=== PATIENT | male | born 1965 | race Caucasian/White ===

== ENCOUNTER 2018-11-24 16:20 | Emergency (ER) | payer OTHER ==
[~2018-11-24] VITALS: Ht 172.7 cm; Wt 85.7 kg
[2018-11-27] MEDS ORDERED: AKTOB5 ML (18:53)
== END 2018-11-24 18:19 | disposition home or self-care (01) ==
LOC: ER 16:20
DX: H10.89 Other conjunctivitis (principal)

== ENCOUNTER → 2021-02-11 | Outpatient (CLI) | payer OTHER ==
[~2021-02-11] MED LIST: AKTOB5 ML; APETIGEN-PLUS1 EACH PO; STRIBILD TABLE1 EACH PO
== END | disposition home or self-care (01) ==
LOC: SONOGRAMA 11:16
PROVIDERS: ATTEND Specialist/Technologist, Other Nephrology
DX: R10.84 Generalized abdominal pain (principal); R31.29 Other microscopic hematuria; K80.80 Other cholelithiasis without obstruction; N28.89 Other specified disorders of kidney and ureter

== ENCOUNTER 2022-05-07 13:38 | Outpatient (CLI) | payer OTHER | END 2022-05-07 13:41 | disposition home or self-care (01) | LOC: RAD 13:38 | PROVIDERS: ATTEND Family Medicine | DX: R06.02 Shortness of breath (principal) ==

== ENCOUNTER 2023-09-23 07:34 | Outpatient (CLI) | payer OTHER | END 2023-09-23 10:20 | disposition home or self-care (01) | LOC: MRI 07:34 | PROVIDERS: ATTEND Psychiatry & Neurology Clinical Neurophysiology | DX: G31.84 Mild cognitive impairment of uncertain or unknown etiology (principal) | CPT/HCPCS: 70553; Q9965; 70552 ==

== ENCOUNTER 2024-05-29 13:36 | Outpatient (CLI) | payer OTHER | END 2024-05-29 13:39 | disposition home or self-care (01) | LOC: RAD 13:36 | PROVIDERS: ATTEND Family Medicine | DX: R06.02 Shortness of breath (principal) ==

== ENCOUNTER 2024-06-07 14:40 | Outpatient (CLI) | payer OTHER | END 2024-06-07 14:42 | disposition home or self-care (01) | LOC: MRI 14:40 | PROVIDERS: ATTEND Psychiatry & Neurology Clinical Neurophysiology | DX: B20 Human immunodeficiency virus [HIV] disease (principal); A81.2 Progressive multifocal leukoencephalopathy; F71 Moderate intellectual disabilities | CPT/HCPCS: 70551 ==

== ENCOUNTER 2024-10-01 08:03 | Outpatient (CLI) | payer OTHER | END 2024-10-01 08:04 | disposition home or self-care (01) | LOC: NUCLEAR 08:03 | PROVIDERS: ATTEND Psychiatry & Neurology Clinical Neurophysiology | DX: G93.40 Encephalopathy, unspecified (principal) | CPT/HCPCS: 78814; A9552 ==